=== PATIENT | female | born 1960 | race African-American/Black ===

== ENCOUNTER 2016-08-17 11:56 | Emergency (ER) | payer OTHER ==
[~2016-08-17] VITALS: Ht 162.6 cm; Wt 64.4 kg
[~2016-08-17 11:56] MED LIST: CYMBALTA20 MG PO; GRALISE1 EACH PO; NORCO 5-325 TA1 EACH PO; NORFLEX100 MG PO; OXYCONTIN10 M1 PO; PENICILLIN V P500 MG PO; PERCOCET 10-321 EAC1 PO; PERCOCET 5-3251 EACH PO; REMERON15 MG PO; VALIUM5 MG PO
[2016-08-17] MEDS ORDERED: NORVASC5 MG PO (12:01)
[2016-08-17 12:28] LABS: HEMOGLOBIN 11.9 gm/dL (12.0-15.0); MCH 29.8 pg (26.0-34.0); MCV 90.2 fL (80.0-100.0); PLATELET COUNT 286 thou/uL (150-400); RBC 3.99 mil/uL (4.20-5.00); RDW 13.5 % (10.5-14.5); WBC 5.8 thou/uL (4.0-11.0)
[2016-08-17 12:36] LABS: CALCIUM 8.8 mg/dL (8.5-10.1); CREATININE 0.8 mg/dL (0.6-1.0); MANUAL DIFF YES; POTASSIUM 3.8 mmol/L (3.5-5.1)
[2016-08-17 13:01] LABS: ABSOLUTE NEUTROPHILS 2.5 thou/uL (1.4-8.2); TOTAL CELL COUNT 100
[2016-08-17 13:02] LABS: PLATELET ESTIMATE NORMAL
[2016-08-17] MEDS ORDERED: COMPAZINE10 MG PO (13:25)
[2016-08-17 14:13] VITALS: BP 141/82
== END 2016-08-17 14:16 | disposition home or self-care (01) ==
LOC: ER 11:56
PROVIDERS: Physician Assistant
DX: G43.909 Migraine, unspecified, not intractable, without status migrainosus (principal); I10 Essential (primary) hypertension; Z86.73 Personal history of transient ischemic attack (TIA), and cerebral infarction without residual deficits; Z87.09 Personal history of other diseases of the respiratory system; F17.210 Nicotine dependence, cigarettes, uncomplicated; F10.99 Alcohol use, unspecified with unspecified alcohol-induced disorder